=== PATIENT | male | born 1955 | race Caucasian/White ===

== ENCOUNTER 2022-06-23 11:14 | Emergency (ER) | payer MEDICARE, OTHER ==
[~2022-06-23] VITALS: Ht 170.2 cm; Wt 68.0 kg
[2022-06-23 11:42] VITALS: BP 145/77
[2022-06-23] MEDS ORDERED: GUAI-671 PO (11:56)
--- NOTE | 2022-06-23 12:11 | NUR ---
Patient discharged to home in stable condition. Written and verbal after care instructions given. Patient verbalizes understanding of instruction.
== END 2022-06-23 12:11 | disposition home or self-care (01) ==
LOC: ER 11:40
DX: J11.1 Influenza due to unidentified influenza virus with other respiratory manifestations (principal); Z79.899 Other long term (current) drug therapy